=== PATIENT | male | born 1955 | race Caucasian/White ===

== ENCOUNTER 2023-07-07 19:52 | Emergency (ER) | payer MEDICARE, SELFPAY ==
[2023-07-07 19:58] VITALS: BP 181/103; PULSE 81; RESP 16; TEMP 36.7; O2SAT 96; BMI 31.8
--- NOTE | 2023-07-07 20:16 | ED_ITS ---
HPI - Male Genitourinary General Chief complaint: Urogenital-Male Stated complaint: UTI complaints Time Seen by Provider: 07/07/23 20:01 Source: patient and family Mode of arrival: walk-in History of Present Illness HPI Narrative: patient is a 67-year-old male who presents to the emergency department for two day history of suprapubic pressure and low back pain. He states he feels as he is urinating frequently. He has had no fevers, vomiting. He denies any mechanism of injury or trauma to the low back. He was recently started on a medication for anxiety. No medications taken prior to arrival. He has no history of kidney stones. He denies any dysuria or hematuria. Related Data Home Medications Medication Instructions Recorded Confirmed allopurinol 300 mg tablet 300 mg PO DAILY 07/07/23 07/07/23 atenolol 25 mg tablet 25 mg PO Q24H 07/07/23 07/07/23 atorvastatin 20 mg tablet 20 mg PO BEDTIME 07/07/23 07/07/23 escitalopram oxalate 10 mg tablet 10 mg PO DAILY 07/07/23 07/07/23 irbesartan 300 1 tab PO DAILY 07/07/23 07/07/23 mg-hydrochlorothiazide 12.5 mg tablet Previous Rx's Medication Instructions Recorded lorazepam 1 mg tablet (Ativan) 1 mg PO Q8H PRN anxiety #10 tabs 07/07/23 naproxen sodium 550 mg tablet 550 mg PO BID PRN pain #10 tabs 07/07/23 Allergies Allergy/AdvReac Type Severity Reaction Status Date / Time No Known Drug Allergies Allergy Verified 07/07/23 19:56 Review of Systems ROS Constitutional Denies: fever or chills Ears, nose, mouth, and throat Denies: throat pain Respiratory Denies: shortness of breath or cough Gastrointestinal Reports: abdominal pain; Denies: nausea, vomiting or diarrhea Genitourinary Reports: urinary frequency; Denies: painful urination Musculoskeletal Reports: back pain Integumentary/Breast Denies: rash Psychiatric Reports: anxiety Exam Narrative Exam Narrative: Gen.: Awake, alert, in no distress Head: Normocephalic, atraumatic ENT: Moist mucous membranes Respiratory: No respiratory distress Gastrointestinal: Abdomen is soft, nondistended and nontender to palpation Back: no CVA tenderness or bony point tenderness of the lumbar spine Extremities: Moves extremities equally, no injuries noted Psych: Normal mood and affect Neuro: No focal neuro deficit Skin: Warm, dry, intact Constitutional Vital Signs, click to edit/add: Last Vital Signs Temp 98.0 F 07/07/23 19:58 Pulse 81 07/07/23 19:58 Resp 16 07/07/23 19:58 BP 148/92 H 07/07/23 21:11 Pulse Ox 96 07/07/23 19:58 O2 Del Method Room Air 07/07/23 19:58 Course Vital Signs Vital signs: Vital Signs Temperature 98.0 F 07/07/23 19:58 Pulse Rate 81 07/07/23 19:58 Respiratory Rate 16 07/07/23 19:58 Blood Pressure 181/103 H 07/07/23 19:58 Pulse Oximetry 96 07/07/23 19:58 Oxygen Delivery Method Room Air 07/07/23 19:58 Temperature 98.0 F 07/07/23 19:58 Pulse Rate 81 07/07/23 19:58 Respiratory Rate 16 07/07/23 19:58 Blood Pressure 148/92 H 07/07/23 21:11 Pulse Oximetry 96 07/07/23 19:58 Oxygen Delivery Method Room Air 07/07/23 19:58 MDM - Male Genitourinary MDM Narrative Medical decision making narrative: EKG was performed as the patient was reporting anxiety symptoms for the last several days, he does not complain of any active chest pain or shortness of breath. He is agreeable to taking oral Ativan and feels as though he is feeling more anxious. Studies, urine specimen are unremarkable and CT of the abdomen and pelvis shows no evidence of kidney stone. Patient was made aware that polyuria can be a symptom of his citalopram and he will make his doctor aware of this to see if he needs medication adjustment. Patient is given Ativan for when necessary anxiety for home as well as an NSAID for back pain. He is resting comfortably with stable vital signs in the Emergency Room, blood pressure improved on reevaluation. Medical Records Attestation: I reviewed the patient's medical records. Lab Data Attestation: I reviewed the patient's lab results. Labs: Lab Results 07/07/23 Range/Units 20:40 WBC 11.5 H (4.0-11.0) 10^3/uL RBC 4.52 L (4.70-6.10) 10^6/uL Hgb 14.9 (14.0-18.0) g/dL Hct 41.3 L (42.0-54.0) % MCV 91.4 (80.0-94.0) fL MCH 33.0 (25.9-34.0) pg MCHC 36.1 H (29.9-35.2) g/dL RDW 12.3 (11.0-15.0) % Plt Count 209 (150-450) 10^3/uL MPV 10.0 (9.5-13.5) fL Neut % (Auto) 76.1 H (43.0-75.0) % Lymph % (Auto) 13.5 L (20.5-60.0) % [place] % (Auto) 9.1 (1.7-12.0) % Eos % (Auto) 0.3 L (0.9-7.0) % Baso % (Auto) 0.4 (0.2-2.0) % Neut # (Auto) 8.7 H (1.4-6.5) 10^3/uL Lymph # (Auto) 1.6 (1.2-3.8) 10^3/uL [place] # (Auto) 1.1 H (0.3-0.8) 10^3/uL Eos # (Auto) 0.0 (0.0-0.7) 10^3/uL Baso # (Auto) 0.1 (0.0-0.1) 10^3/uL Abs Immat Gran (auto) 0.07 H (0.00-0.03) 10^3/uL Imm/Tot Granulo (auto) 0.6 H (0.0-0.5) % Sodium 136 (136-145) mmol/L Potassium 3.4 L (3.5-5.1) mmol/L Chloride 98 (98-107) mmol/L Carbon Dioxide 26.0 (21.0-32.0) mmol/L Anion Gap 15.4 BUN 15.0 (7.0-18.0) mg/dL Creatinine 1.04 (0.70-1.30) mg/dL Est GFR ( Amer) >60 (>=60) Est GFR (Non-Af Amer) >60 (>=60) BUN/Creatinine Ratio 14.4 Glucose 103 (74-106) mg/dL Lactate 2.1 H (0.4-2.0) mmol/L Calcium 9.9 (8.5-10.1) mg/dL Total Bilirubin 0.5 (0.2-1.0) mg/dL AST 33 (15-37) U/L ALT 49 (16-63) U/L Alkaline Phosphatase 78 (46-116) U/L Total Protein 8.0 (6.4-8.2) g/dL Albumin 4.3 (3.4-5.0) g/dL Globulin 3.7 g/dL Albumin/Globulin Ratio 1.2 Urine Color Yellow (YELLOW) Urine Clarity Clear (CLEAR) Urine pH 5.5 (5.0-9.0) Ur Specific [place] 1.020 (1.005-1.025) Urine Protein Negative (NEG/TRACE) mg/dL Urine Glucose (UA) Negative (NEGATIVE) mg/dL Urine Ketones Negative (NEGATIVE) mg/dL Urine Occult Blood Trace-i (NEGATIVE) Urine Nitrite Negative (NEGATIVE) Urine Bilirubin Negative (NEGATIVE) Urine Urobilinogen 0.2 (0.2-1.0) EU/dL Ur Leukocyte Esterase Negative (NEGATIVE) Imaging Data CT scan - abdomen: Attestation: I have reviewed the pertinent imaging results. Radiologist's impression: Procedure: CT abdomen pelvis wo con EXAM: CT abdomen pelvis wo con REASON FOR EXAM: Male, 67 years, kidney stone. TECHNIQUE: Computed tomography of the abdomen and pelvis is performed in the axial projection from the lung bases to the pubic symphysis. Sagittal and coronal reconstructed images are performed. Dose reduction techniques were achieved by using automated exposure control and/or adjustment of mA and/or KVP according to patient size and/or use of iterative reconstruction technique. Study was performed without IV contrast. Study was performed without oral contrast. COMPARISON: None. FINDINGS: Lung bases: The lung bases are clear. There is no pleural effusion. The visualized portions of the heart are unremarkable. The lack of intravenous contrast slightly limits evaluation of the solid abdominal organs. Liver: There is diffuse decreased attenuation throughout the liver consistent with steatosis. Gallbladder: The gallbladder is normal. Spleen: The spleen is normal. Pancreas: The pancreas is normal. Adrenal glands: The adrenal glands are normal bilaterally. Right kidney: The kidney is normal in size. There is no renal calculus or hydronephrosis. Left kidney: The kidney is normal in size. There is no renal calculus or hydronephrosis. Stomach: The stomach is normal. Small bowel: There is no small bowel obstruction. A duodenal diverticulum is seen. Large bowel: There are colon diverticula, without surrounding inflammatory changes. Appendix: The appendix is visualized, and is normal. Aorta: There are mild atherosclerotic calcifications of the abdominal aorta. IVC: The IVC is normal. Retroperitoneum: Normal retroperitoneum. Bladder: The bladder is normal. Pelvic organs: The prostate gland is not significantly enlarged. There are extensive calcifications of the vas deferens. Abdominal wall: Normal abdominal wall. Osseous structures: Degenerative changes are seen in the visualized spine. IMPRESSION: Hepatic steatosis. Diverticulosis, without acute diverticulitis. No bowel obstruction or acute renal pathology. Additional nonacute findings, as described above. Electronically authenticated by: MAURA LOVING Date: 07/07/2023 21:29 ECG Data Attestation: I personally reviewed and interpreted this ECG as follows: (normal sinus rhythm at a rate of seventy-three, no acute ST elevation or ectopy. EKG reviewed by attending physician) ECG interpretation date: 07/07/23 ECG interpretation time: 21:54 Discharge Plan Discharge Chief Complaint: Urogenital-Male Clinical Impression: Low back pain, Urinary frequency, Anxiety Patient Disposition: Home, Self-Care Time of Disposition Decision: 21:54 Condition: Good Prescriptions / Home Meds: New lorazepam [Ativan] 1 mg tablet 1 mg PO Q8H PRN (Reason: anxiety) Qty: 10 0RF Rx Instructions: DX: F41.9 naproxen sodium 550 mg tablet 550 mg PO BID PRN (Reason: pain) Qty: 10 0RF No Action allopurinol 300 mg tablet 300 mg PO DAILY atenolol 25 mg tablet 25 mg PO Q24H atorvastatin 20 mg tablet 20 mg PO BEDTIME escitalopram oxalate 10 mg tablet 10 mg PO DAILY irbesartan-hydrochlorothiazide 300-12.5 mg tablet 1 tab PO DAILY Instructions: Polyuria (ED), Urinary Urgency and Frequency (DC) Stand Alone Forms: Portal Instructions Referrals: FABIO NAJERA [Primary Care Provider] - 1 week
[2023-07-07 20:45] LABS: Basophils Absolute Auto 0.1 10^3/uL (0.0-0.1); Basophils Percent Auto 0.4 % (0.2-2.0); Eosinophils Percent Auto 0.3 % (0.9-7.0); Hematocrit 41.3 % (42.0-54.0); Hemoglobin 14.9 g/dL (14.0-18.0); Immature Granulocytes Abs Auto 0.07 10^3/uL (0.00-0.03); Immature Granulocytes Pct Auto 0.6 % (0.0-0.5); Lymphocytes Absolute Auto 1.6 10^3/uL (1.2-3.8); Lymphocytes Percent Auto 13.5 % (20.5-60.0); Mean Corpuscular HGB Conc 36.1 g/dL (29.9-35.2); Mean Corpuscular Volume 91.4 fL (80.0-94.0); Monocytes Absolute Auto 1.1 10^3/uL (0.3-0.8); Monocytes Percent Auto 9.1 % (1.7-12.0); Neutrophils Absolute Auto 8.7 10^3/uL (1.4-6.5); Neutrophils Percent Auto 76.1 % (43.0-75.0); Platelet Count 209 10^3/uL (150-450); Red Blood Count 4.52 10^6/uL (4.70-6.10); Red Cell Distribution Width 12.3 % (11.0-15.0); White Blood Count 11.5 10^3/uL (4.0-11.0)
[2023-07-07 20:46] LABS: Bilirubin Urine NEGATIVE (NEGATIVE); Blood Urine TRACE-I (NEGATIVE); Clarity Urine CLEAR (CLEAR); Color Urine YELLOW (YELLOW); Glucose Urine UA NEGATIVE (NEGATIVE); Ketones Urine NEGATIVE (NEGATIVE); Leukocyte Esterase Urine NEGATIVE (NEGATIVE); Nitrite Urine NEGATIVE (NEGATIVE); Protein Urine NEGATIVE (NEG/TRACE); Urobilinogen Urine 0.2 EU/dL (0.2-1.0); pH Urine 5.5 (5.0-9.0)
[2023-07-07 20:51] LABS: Urine Microscopic Indicated NO
[2023-07-07 21:03] LABS: Alanine Aminotransferase 49 U/L (16-63); Albumin Globulin Ratio 1.2; Albumin Level 4.3 g/dL (3.4-5.0); Alkaline Phosphatase 78 U/L (46-116); Anion Gap 15.4; Aspartate Amino Transferase 33 U/L (15-37); BUN Creatinine Ratio 14.4; Bilirubin Total 0.5 mg/dL (0.2-1.0); Calcium 9.9 mg/dL (8.5-10.1); Chloride 98 mmol/L (98-107); Estimated GFR (African America >60 (>=60); Estimated GFR (Non-African Ame >60 (>=60); Globulin 3.7 g/dL; Glucose 103 mg/dL (74-106); Potassium 3.4 mmol/L (3.5-5.1); Sodium 136 mmol/L (136-145)
[2023-07-07 21:07] LABS: Lactate/Lactic Acid 2.1 mmol/L (0.4-2.0)
[2023-07-07 21:11] VITALS: BP 148/92
--- NOTE | 2023-07-07 21:14 | PC.NURSE ---
Patient reports increased frequency of urination, pain across his low back described as pressure, mild chest pain, dry mouth.
--- NOTE | 2023-07-07 21:51 | ECG_ITS ---
[facility] Test Date: 2023-07-07 Pat Name: JOEY AKERS Department: Room: - Gender: Male Word Processor: : 1955 Requested By: FABIO NAJERA Order Number: [id number] Reading MD: KRISTY CEBALLOS Measurements Intervals [place] Rate: 73 P: 35 DC: 182 QRS: -28 QRSD: 90 T: 55 QT: 392 QTc: 418 Interpretive Statements 1100 Sinus rhythm 7202 Moderate left axis deviation 9110 normal ECG No previous ECG available for comparison Electronically Signed On 07-08-2023 7:14:02 EDT by KRISTY CEBALLOS
[2023-07-07] MEDS: LORAZEPAM 0.5 MG TABLET 1 MG PO (22:00)
== END 2023-07-07 22:09 | disposition home or self-care (01) ==
PROVIDERS: Physician Assistant; Emergency Provider Emergency Medicine; PCP Family Medicine
DX: M54.50 Low back pain, unspecified (principal); F41.9 Anxiety disorder, unspecified; R35.0 Frequency of micturition; Z79.899 Other long term (current) drug therapy
CPT/HCPCS: 36415; 74176; 80053; 81003; 83605; 85025; 93005; 99285